=== PATIENT | male | born 1970 ===

== ENCOUNTER 2018-03-18 08:00 | Inpatient (IN) | payer OTHER ==
[2018-03-18] VITALS (10 sets, daily range): BP systolic 119–144; BP diastolic 65–82
[~2018-03-18] VITALS: Ht 175.3 cm; Wt 82.6 kg
[2018-03-18] MEDS ORDERED: OXYCODONE HCL30 MG ORAL (09:19)
[2018-03-18] MEDS ORDERED: ATORVASTATIN CA40 MG ORAL (09:21)
[2018-03-18] MEDS ORDERED: LEVETIRACETAM1000 MG ORAL (09:21)
[2018-03-18] MEDS ORDERED: LR 1000ml 1,000 ML IVLG SCH (11:03)
--- NOTE | 2018-03-18 11:05 | Anethesia Preoperative Eval ---
Anesthesia Pre-op PMH/ROS General Date of Evaluation: Mar 18, 2018 Time of Evaluation: 13:38 Anesthesiologist: Ayala ASA Score: ASA 2 Mallampati Score Class I : Soft palate, uvula, fauces, pillars visible Class II: Soft palate, uvula, fauces visible Class III: Soft palate, base of uvula visible Class IV: Only hard plate visible Mallampati Classification: Class II Surgeon: Lorenzo Diagnosis: Back Pain Surgical Procedure: Revision Bilateral L5-S1 Microdiscectomy, R L4-5 Microdiscectomy Anesthesia History: none Family History: no anesthesia problems Allergies: Coded Allergies: No Known Allergies (Unverified , 03/18/18) Medications: see eMAR Past Medical History Cardiovascular: Reports: other - HL Neurologic/Psychiatric: Reports: other - Seizures PSxH Narrative: R Knee SX Anesthesia Pre-op Phys. Exam Physician Exam Vital Signs Date Time Temp Pulse Resp B/P (MAP) Pulse Ox O2 Delivery O2 Flow Rate FiO2 03/18/18 09:23 Room Air Last Vital Signs Date Time Temp Pulse Resp B/P (MAP) Pulse Ox O2 Delivery O2 Flow Rate FiO2 03/18/18 09:23 Room Air Constitutional: NAD Neurologic: CN 2-12 intact Cardiovascular: RRR Respiratory: CTA Gastrointestinal: S/NT/ND Airway Exam Mallampati Score: Class II MO: full ROM: full Teeth: intact Anesthesia Pre-op A/P Risk Assessment & Plan Assessment: ASA 2 Plan: GA, BIS, GlideScope Go Status Change Before Surgery: No Pre-Antibiotics Dru Grams Ancef IV Given Within 1 Hr of Incision: Yes Time Given: 13:51 Andrey Cai MD Mar 18, 2018 11:05
[2018-03-18] MEDS ORDERED: LORazepam Inj 2mg/ml 1ml IV PRN (11:15)
[2018-03-18] MEDS ORDERED: Labetalol 5mg/ml 20ml vial IV PRN (11:15)
[2018-03-18] MEDS ORDERED: Acetaminophen (Non formulary) 100 ML IV ONE (11:15)
[2018-03-18] MEDS ORDERED: DiphenhydrAMINE 50mg/ml Inj IVP PRN (11:15)
[2018-03-18] MEDS ORDERED: Atropine Inj 1mg/10ml Syr IV PRN (11:15)
[2018-03-18] MEDS ORDERED: oxyCODONE HCL/Acetaminophen 5/325mg ORAL PRN (11:15)
[2018-03-18] MEDS ORDERED: Metoclopramide 10mg/2ml Inj IVP PRN (11:15)
[2018-03-18] MEDS ORDERED: Norco 5mg/325mg tab ORAL PRN (11:15)
[2018-03-18] MEDS ORDERED: Ketorolac 30mg Inj IV PRN ×2 (11:15)
[2018-03-18] MEDS ORDERED: fentaNYL 100 mcg/2 mL IV PRN (11:15)
[2018-03-18] MEDS ORDERED: HYDROcodone/Acetamin 7.5/325 tab ORAL PRN (11:15)
[2018-03-18] MEDS ORDERED: Midazolam 2mg/2ml Inj IVP PRN (11:15)
[2018-03-18] MEDS ORDERED: Lidocaine 1% Plain 30 ml INJ ONE ×2 (11:17→15:52)
[2018-03-18] MEDS ORDERED: Sodium Chloride 10ml vial INJ ONE (11:25)
[2018-03-18] MEDS ORDERED: Lidocaine 1% MPF 10mg/ml 5ml ONE (11:25)
[2018-03-18] MEDS ORDERED: Dexamethasone 4mg/ml vial ONE (11:25)
[2018-03-18] MEDS ORDERED: fentaNYL 100 mcg/2 mL IV ONE ×3 (11:38→16:54)
--- NOTE | 2018-03-18 11:54 | Immediate Post-Op Evaluation ---
Immediate Post-Op Evalulation Immediate Post-Op Evalulation Procedure: Revision Bilateral L5-S1 Microdiscectomy, R L4-5 Microdiscectomy Date of Evaluation: Mar 18, 2018 Time of Evaluation: 17:19 IV Fluids: 1500 LR Blood Products: 0 Estimated Blood Loss: 100 Urinary Output: 200 Blood Pressure Systolic: 128 Blood Pressure Diastolic: 72 Pulse Rate: 79 Respiratory Rate: 16 O2 Sat by Pulse Oximetry: 100 Temperature (Fahrenheit): 97 Pain Score (1-10): 3 Nausea: No Vomiting: No Complications 0 Patient Status: awake, reacts, patent, extubated, none Hydration Status: adequate Dru Grams Ancef IV Given Within 1 Hr of Incision: Yes Time Given: 13:51 Andrey Cai MD Mar 18, 2018 11:54
[2018-03-18] MEDS ORDERED: EPINEPHrine 1mg/1ml Amp ONE (12:41)
[2018-03-18] MEDS ORDERED: Thrombin 5000 units TOPIC ONE ×2 (12:41→12:43)
[2018-03-18] MEDS ORDERED: Bacitracin 50000 Units Vial ONE (12:42)
[2018-03-18] MEDS ORDERED: Bupivacaine 0.25% Inj 30ml INJ ONE (12:42)
[2018-03-18] MEDS ORDERED: Dyna-Hex 2% Top Sol 2oz TOPIC ONE (12:42)
[2018-03-18] MEDS ORDERED: Thrombin 5000 units spray kit TOPIC ONE (12:43)
[2018-03-18] MEDS ORDERED: Gelfoam Absorbable 1gm powder pkt TOPIC ONE (12:44)
[2018-03-18] MEDS ORDERED: Zemuron 50mg/5ml Inj IV ONE (12:54)
[2018-03-18] MEDS ORDERED: Sterile Water For Irrig 2000ml IRRIG ONE (13:30)
[2018-03-18] MEDS ORDERED: Propofol 1,000mg/ 100ml btl IV ONE (13:30)
[2018-03-18] MEDS ORDERED: NS Irrig 1000ml ONE (13:30)
[2018-03-18] MEDS ORDERED: LR 1000ml ONE (13:30)
--- NOTE | 2018-03-18 13:32 | Pre-Procedure Note/Attestation ---
Pre-Procedure Note/Attestation Complete Prior to Procedure Planned Procedure: bilateral Procedure Narrative: Right L4-5 microdiscectomy and revision bilateral L4-S1 microdiscectomy Indications for Procedure Pre-Operative Diagnosis: L4-S1 symptomatic stenosis Attestation I attest that I discussed the nature of the procedure; its benefits; risks and complications; and alternatives (and the risks and benefits of such alternatives ), prior to the procedure, with the patient (or the patient's legal sales representative metals). I attest that, if there was a reasonable possibility of needing a blood transfusion, the patient (or the patient's legal sales representative metals) was given the [facility] standardized written summary, pursuant to the Tyron Ollie Blood Safety Act ([place] Health and Safety Code # 1645, as amended). I attest that I re-evaluated the patient just prior to the surgery and that there has been no change in the patient's H&P, except as documented below: Mendoza Ventura Mar 18, 2018 13:32
--- NOTE | 2018-03-18 16:57 | Brief Operative Note ---
Immediate Post Operative Note Operative Note Pre-op Diagnosis: L4-S1 symptomatic stenosis Procedure: Right sided L4-5 microdiscectomy and revision bilateral L5-S1 decompression and microdiscectomies Post-op Diagnosis: same as pre-op Surgeon: Dr Ventura Resaw Machine Operator: Dr Romero Anesthesiologist: Dr Cai Anesthesia: general Specimen: yes Complications: none Condition: stable Fluids: NA Estimated Blood Loss: volume - 50 ml Drains: none Implant(s) used?: No Mendoza Ventura Mar 18, 2018 16:57
[2018-03-18] MEDS ORDERED: Naloxone 0.4mg/ml Inj IVP PRN (17:00)
[2018-03-18] MEDS: Hydromorphone 0.5mg/0.5ml inj IVP PRN ×3 (17:21→18:15)
--- NOTE | 2018-03-18 18:12 | 48 Hour Post Anesthesia Eval ---
Post Anesthesia Evaluation Procedure: Revision Bilateral L5-S1 Microdiscectomy, R L4-5 Microdiscectomy Date of Evaluation: Mar 18, 2018 Time of Evaluation: 20:07 Blood Pressure Systolic: 124 0: 69 Pulse Rate: 69 Respiratory Rate: 18 Temperature (Fahrenheit): 98 O2 Sat by Pulse Oximetry: 100 Airway: patent Nausea: No Vomiting: No Pain Intensity: 3 Hydration Status: adequate Cardiopulmonary Status: Stable Mental Status/LOC: patient returned to baseline Follow-up Care/Observations: 0 Post-Anesthesia Complications: 0 Follow-up care needed: N/A Andrey Cai MD Mar 18, 2018 18:12
--- NOTE | 2018-03-18 20:25 | General Progress Note ---
Assessment/Plan Status Narrative s/p lumbar spien surgery s/p removal of foely recent seizure was started on keppera Assessment/Plan neuro to see for seizure and will follow dvt prophyalxis apin control Subjective Date patient seen: Mar 18, 2018 Time patient seen: 20:23 Constitutional: Reports: no symptoms HEENT: Reports: no symptoms Cardiovascular: Reports: no symptoms Respiratory: Reports: no symptoms Allergies: Coded Allergies: No Known Allergies (Unverified , 03/18/18) Objective Last 24 Hour Vital Signs Date Time Temp Pulse Resp B/P (MAP) Pulse Ox O2 Delivery O2 Flow Rate FiO2 03/18/18 18:45 98.5 03/18/18 18:30 98.5 73 18 122/65 100 Nasal Cannula 3 98.5 03/18/18 18:15 69 15 119/74 100 Nasal Cannula 3 03/18/18 18:15 98.0 03/18/18 18:12 208.4 69 18 100 03/18/18 18:00 69 18 124/69 100 Nasal Cannula 3 03/18/18 17:46 70 19 139/78 100 Simple Mask 6 03/18/18 17:46 98.0 03/18/18 17:35 71 12 140/82 100 Simple Mask 6 03/18/18 17:21 97.6 03/18/18 17:21 67 15 144/74 100 Simple Mask 6 03/18/18 17:18 71 12 143/79 100 Simple Mask 6 03/18/18 17:13 79 23 129/73 100 Simple Mask 6 03/18/18 17:09 206.6 79 16 100 03/18/18 17:08 97.2 84 16 128/72 100 Simple Mask 6 97.2 03/18/18 09:23 Room Air Height (Feet): 5 Height (Inches): 9.00 Weight (Pounds): 182 General Appearance: WD/WN Cardiovascular: normal rate, regular rhythm, no JVD Respiratory/Chest: lungs clear Abdomen: non tender, soft Jose Connor MD Mar 18, 2018 20:25
[2018-03-18] MEDS: Morphine Sulfate 4mg/ml Inj IV PRN (20:29)
[2018-03-18] MEDS ORDERED: Atorvastatin 80mg tab ORAL SCH (22:45)
[2018-03-18] MEDS: ceFAZolin sod 1 GM in D5W 55 ML IV SCH (22:51)
[2018-03-18] MEDS: NS w/KCl 20mEq 1,000 ML IV SCH (22:52)
[2018-03-18] MEDS: HYDROcodone/Acetamin 7.5/325 tab ORAL PRN (23:03)
[2018-03-19] VITALS: BP 140/69
--- NOTE | 2018-03-19 00:45 | Operative Note - Dictated ---
DATE OF OPERATION: 03/18/2018 INDICATION FOR SURGERY: The patient is a pleasant 47-year-old gentleman who underwent bilateral microdiskectomy approximately 9 to 10 months ago. Unfortunately, he re-herniated at that same level causing recurrence of his symptoms. Repeat imaging also demonstrated herniated disk at level above at L4-L5 on the right side. He re-attempted conservative measures which were ineffective and therefore he requested today for surgical intervention. RISKS AND BENEFITS DISCUSSION: The patient was apprised of all objectives, benefits, risks and potential complications of the procedure including, but not limited to worsening of current status, possible need for further procedures, risk of infection, headache, CSF leak, possible spinal cord injury resulting in paralysis, injury to major blood vessels causing hemorrhage, stroke, loss of language function, coma and even . No assurance was given whether these symptoms will improve following the procedure. Informed consent was obtained and secured in the chart after the patient voiced understanding of these risks and decided to proceed with the operation. PREOPERATIVE DIAGNOSES: 1. Re-herniated bilateral L5-S1 disk. 2. Right-sided new herniated disk at L4-L5. 3. Lumbar radiculopathy. 4. Back pain. POSTOPERATIVE DIAGNOSES: 1. Re-herniated bilateral L5-S1 disk. 2. Right-sided new herniated disk at L4-L5. 3. Lumbar radiculopathy. 4. Back pain. OPERATION PERFORMED: 1. Left-sided and right-sided L5-S1 revision laminectomies and microdiskectomies for decompression. 2. Neurolysis requiring excess amount of time as this is a revision case and adhesions off of the nerve roots and re-herniated, this need to be peeled off. 3. Right-sided L4-L5 laminectomy and partial facetectomy for microdiskectomy. 4. Use of microscope. 5. Use of fluoroscope. 6. Neuromonitoring. 7. Paraspinal and facet Marcaine injection for postoperative pain control. 8. Extra time spent during dissection to scar tissue and performing neurolysis to achieve good decompression. SURGEON: Mendoza Ventura D.O. SPRING UP SUPERVISOR: Uday Romero M.D. ANESTHESIA: GETA. ESTIMATED BLOOD LOSS: Approximately 50 mL. FINDINGS: Reherniation of disks at L5-S1 and other hard disk at L4-L5 including excessive amount of scar tissue formation. SPECIMEN SENT: Herniated disk removed. COMPLICATIONS: None. TECHNIQUE: The patient was brought into the operating room. He was then sedated and intubated by the anesthesia team. He was transferred to the operating table on prone position. Preoperative antibiotics were given. Eyes were taped shut after ointment was applied to prevent corneal abrasion. Jamison catheter was inserted. All pressure points were carefully padded. Neuromonitoring team placed the needles in appropriate position and baselines were obtained. The skin was prepped and draped in the standard surgical fashion. A time-out was taken. A linear incision was performed with a scalpel blade and dissection was carried down to the fascial layer. The fascia was then opened unilaterally and dissection was continued over the L4 lamina and medial aspect of the facet joint at L4-L5. Fluoroscope was used to confirm the L4-L5 level. The microscope was brought in at this point. Right-sided L4 laminotomy was performed including partial facetectomy. The ligamentum flavum was removed and the traversing L5 nerve root was retracted medially. The posterior longitudinal ligament was then opened in this area and some disk was at this point removed. No obvious large herniated disk seen in the MRI was found except for prominence of scar tissue and thickened disk bulges which were all coagulated, thus achieved excellent decompression. The cephalad portion of the lamina of the L5 was then removed and foraminotomy following the right L5 nerve root to the L4-L5 foramina was carried out. Excellent decompression of the L5 nerve root was confirmed. Afterwards, dissection was carried out through the scar tissue L5-S1 bilaterally. Bilateral laminectomies at this point were carried out. The scar tissue was carefully dissected off the dura and the lateral recesses. Full laminectomies carried out on the right side to achieve excellent decompression. We rechecked to confirm excellent decompression of right L5 nerve root. A thickened scar tissue band was excised achieving good release of the nerve root. Neurolysis was carried out as well in the lateral recesses. Excellent decompression of the right S1 nerve root was also confirmed. On the left side, a large recurrent herniation at L5-S1 was seen and this was carefully removed, thus achieving excellent decompression of the left S1 traversing nerve root. Foraminotomies through the foramen of S1-S2 was also carried out and the area was copiously irrigated. Excellent central and lateral recesses of foraminal decompression were all rechecked and confirmed. Facet Marcaine injection was then carried out to help postoperative pain control. Water-tight closure of the fascial layer was then carried out followed by reapproximation of the subcutaneous layers. Skin edges were also reapproximated and skin glue was applied to the final layer. All needle count, sponge count, and instrument counts were correct at the end of the case x2. The neuromonitoring signals were stable throughout the entire case. The patient was transferred to recovery in stable condition. He was examined after surgery and recovery and was able to move all extremities without difficulty. Mendoza Ventura MD DR: Moy JOB#: [id number] CC:
[2018-03-19 04:00] VITALS: BP 127/63
[2018-03-19] MEDS: ceFAZolin sod 1 GM in D5W 55 ML IV SCH ×2 (06:15→14:57)
[2018-03-19] MEDS: Morphine Sulfate 4mg/ml Inj IV PRN (06:16)
[2018-03-19] MEDS: HYDROcodone/Acetamin 7.5/325 tab ORAL PRN (07:41)
[2018-03-19] MEDS ORDERED: Dexamethasone 4mg/ml vial IVP SCH ×2 (08:00→12:00)
[2018-03-19 08:16] VITALS: BP 121/59
--- NOTE | 2018-03-19 08:38 | General Progress Note ---
Assessment/Plan Assessment/Plan s/p complex spine surgery historyof head trauma history of new onset seizure ? secondary to the trauma on keppra was on neurontin before will monitor nad follow Subjective Date patient seen: Mar 19, 2018 Time patient seen: 08:37 Constitutional: Reports: no symptoms HEENT: Reports: no symptoms Cardiovascular: Reports: no symptoms Respiratory: Reports: no symptoms Gastrointestinal/Abdominal: Reports: no symptoms Allergies: Coded Allergies: No Known Allergies (Unverified , 03/18/18) Subjective has painadn paresthesia Objective Last 24 Hour Vital Signs Date Time Temp Pulse Resp B/P (MAP) Pulse Ox O2 Delivery O2 Flow Rate FiO2 03/19/18 08:17 Room Air 03/19/18 08:16 99.1 73 20 121/59 (79) 99 99.1 03/19/18 07:41 98.2 03/19/18 04:00 98.2 75 20 127/63 (84) 99 98.2 03/19/18 00:00 97.8 98 18 140/69 (92) 95 97.8 03/18/18 21:00 Room Air 03/18/18 20:00 98.2 89 17 127/76 (93) 99 98.2 03/18/18 18:45 98.5 03/18/18 18:30 98.5 73 18 122/65 100 Nasal Cannula 3 98.5 03/18/18 18:15 69 15 119/74 100 Nasal Cannula 3 03/18/18 18:15 98.0 03/18/18 18:12 208.4 69 18 100 03/18/18 18:00 69 18 124/69 100 Nasal Cannula 3 03/18/18 17:46 70 19 139/78 100 Simple Mask 6 03/18/18 17:46 98.0 03/18/18 17:35 71 12 140/82 100 Simple Mask 6 03/18/18 17:21 97.6 03/18/18 17:21 67 15 144/74 100 Simple Mask 6 03/18/18 17:18 71 12 143/79 100 Simple Mask 6 03/18/18 17:13 79 23 129/73 100 Simple Mask 6 03/18/18 17:09 206.6 79 16 100 03/18/18 17:08 97.2 84 16 128/72 100 Simple Mask 6 97.2 03/18/18 09:23 Room Air Intake and Output 03/18/18 03/19/18 19:00 07:00 Intake Total 1575 ml 1175 ml Output Total 300 ml Balance 1275 ml 1175 ml IV Total 1575 ml 1175 ml Output Urine Total 200 ml Estimated Blood Loss 100 ml # Voids 1 NAD NOjcvds cta s1,s2,rrr soft moves all extremity Height (Feet): 5 Height (Inches): 9.00 Weight (Pounds): 182 Jose Connor MD Mar 19, 2018 08:38
[2018-03-19] MEDS: NS w/KCl 20mEq 1,000 ML IV SCH (08:51)
[2018-03-19] MEDS ORDERED: Docusate 100mg cap ORAL SCH (09:00)
--- NOTE | 2018-03-19 12:12 | Diagnostic Imaging Report ---
Indication: Pain, intraoperative Technique: Intraoperative images Comparison: none Findings: Localizing image demonstrates surgical tool projected to what is probably the L5 vertebral body, although there does appear to be transitional anatomy. Impression: Intraoperative imaging, as described
[2018-03-19 12:29] VITALS: BP 124/74
[2018-03-19] MEDS ORDERED: HYDROmorphone 1mg/ml Carpuject IVP ONE (15:00)
--- NOTE | 2018-03-22 09:56 | Discharge Summary ---
Discharge Summary Hospital Course Date of Admission Mar 18, 2018 at 08:43 Date of Discharge Mar 19, 2018 at 15:45 Admitting Diagnosis Reason for Hospitalization: elective surgery HPI Vincenzo Guevara is a 47 year old male who was admitted on Mar 18, 2018 at 08:43 for Low Back Pain, Spinal Stenosis Of Lumbar Region Consultations dr Connor- IM Procedures s/p 03/[address] Ventura 1. Left-sided and right-sided L5-S1 revision laminectomies and microdiskectomies for decompression. 2. Neurolysis requiring excess amount of time as this is a revision case and adhesions off of the nerve roots and re-herniated, this need to be peeled off. 3. Right-sided L4-L5 laminectomy and partial facetectomy for microdiskectomy. 4. Use of microscope. 5. Use of fluoroscope. 6. Neuromonitoring. 7. Paraspinal and facet Marcaine injection for postoperative pain control. 8. Extra time spent during dissection to scar tissue and performing neurolysis to achieve good decompression. Hospital Course s/p surgery course of recovery uneventful s/p prophylactic antibiotics neurovascular intact dressing clean, dry and intact pain management addressed, pain controlled IV steroids provided ambulated with PT, fall precautions maintained initially IV fluids, diet started as tolerated , able to tolerate diet, antiemetic prn voided freely after F/c discontinued seizure precaution maintained, Keppra and Neurontin continued neuro eval as outpatient bowel regimen instituted GI prophylaxis provided surgeon cleared for dc with outpatient follow up FINAL DIAGNOSES 1. Re-herniated bilateral L5-S1 disk. 2. Right-sided new herniated disk at L4-L5. 3. Lumbar radiculopathy. 4. Back pain. 5. s/p revision Bilateral L5-S1 ,Microdiscectomy, R L4-5 Microdiscectomy 6. history of head trauma 7. history of new onset seizure , possibly secondary to the trauma Discharge Condition Upon Discharge: stable Discharge Disposition Patient was discharged to Home () Discharge Instructions Discharge Instructions Special Instructions I have been assigned to complete a D/C Summary on this account. I was not involved in the patient management Johana Spann NP Mar 22, 2018 09:56
== END 2018-03-19 15:45 | disposition home or self-care (01) | DRG 520 ==
LOC: SDSOVERFLO 08:43 → 4E 19:56 → 3E 20:28
PROC: 01NB0ZZ Release Lumbar Nerve, Open Approach (ICD-10-PCS; 2018-03-18)
PROC: 0SB40ZZ Excision of Lumbosacral Disc, Open Approach (ICD-10-PCS; principal; 2018-03-18 11:30)
PROC: 0SB20ZZ Excision of Lumbar Vertebral Disc, Open Approach (ICD-10-PCS; principal; 2018-03-18 11:30)
DX: M51.16 Intervertebral disc disorders with radiculopathy, lumbar region (principal); M51.17 Intervertebral disc disorders with radiculopathy, lumbosacral region; F07.81 Postconcussional syndrome
CPT/HCPCS: 36415; 72020; 76001; 80299; 86850; 86900; 86901; 87081; J2405